=== PATIENT | female | born 1950 | race Caucasian/White ===

== ENCOUNTER 2018-04-09 12:32 | Inpatient (IN) ==
[2018-04-09] MEDS ORDERED: *HR* OxyCODONE Immed Rel 5 MG TABLET PO PRN (13:14)
[2018-04-09] MEDS ORDERED: Dextrose Gel 15 GM/37.5 ML TUBE PO PRN ×2 (13:37)
[2018-04-09] MEDS ORDERED: *HR* Dextrose 50 % in Water (Syg) 50 ML SYRINGE IVP PRN (13:37)
[2018-04-09] MEDS ORDERED: D5% in Water 1,000 ML IVC PRN (13:37)
[2018-04-09] MEDS: *HR* OxyCODONE Immed Rel 5 MG TABLET PO PRN ×2 (16:09→21:53)
[2018-04-09] MEDS: Insulin LISPRO 300 UNITS/3 ML VIAL SQ SCH ×2 (16:16→21:17)
[2018-04-09] MEDS: *HR* Metformin 500 MG TABLET PO SCH (16:17)
[2018-04-09] MEDS: *HR* Enoxaparin 30 MG/0.3 ML SYRINGE SQ SCH (17:19)
[2018-04-10] MEDS: *HR* OxyCODONE Immed Rel 5 MG TABLET PO PRN ×4 (04:01→22:39)
[2018-04-10 05:06] LABS: Basophils % 0.4 %; Eosinophils # 0.4 K/mcL (0.0-0.6); Eosinophils % 4.3 %; Hematocrit 31.7 % (35.3-44.9); Hemoglobin 10.3 g/dL (11.5-15.4); Immature Granulocytes % 0.5 % (0-4); Lymphocytes # 2.7 K/mcL (0.6-4.6); Lymphocytes % 32.8 %; Mean Corpuscular HGB Conc 32.5 g/dL (31.6-35.5); Mean Corpuscular Hemoglobin 28.6 pg (28.0-33.3); Mean Corpuscular Volume 88.1 fL (83.0-100.0); Mean Platelet Volume 9.3 fL (9.4-12.4); Monocytes # 0.7 K/mcL (0.0-1.3); Monocytes % 8.1 %; Neutrophils # 4.4 K/mcL (1.6-8.9); Platelet Count 259 K/mcL (140-400); Red Cell Distribution Width 13.7 % (11.5-14.5); Segmented Neutrophils % 53.9 %
[2018-04-10] MEDS: *HR* Enoxaparin 30 MG/0.3 ML SYRINGE SQ SCH ×2 (05:09→16:57)
[2018-04-10 05:22] LABS: BUN/Creatinine Ratio 27 (6-26); Blood Urea Nitrogen 15 mg/dL (8-23); Calcium 8.8 mg/dL (8.6-10.3); Carbon Dioxide 30 mEq/L (23-29); Chloride 99 mEq/L (98-107); Glucose 249 mg/dL (70-105); Osmolality,Calculated 289 (280-300); Potassium 3.9 mEq/L (3.5-5.1); Sodium 135 mEq/L (136-145); eGFR For Non-African Americans > 60 (> 60)
[2018-04-10] MEDS: Insulin LISPRO 300 UNITS/3 ML VIAL SQ SCH ×4 (08:13→20:29)
[2018-04-10] MEDS: Loratadine 10 MG TABLET PO SCH (08:14)
[2018-04-10] MEDS: Losartan/HCTZ 50-12.5 TABLET PO SCH (08:14)
[2018-04-10] MEDS: Aspirin Enteric Coated 81 MG Tablet PO SCH (08:14)
[2018-04-10] MEDS: *HR* Metformin 500 MG TABLET PO SCH ×3 (08:14→16:57)
[2018-04-10] MEDS: Liraglutide [Victoza 3-Pak] 1.8 MG PO SCH (08:15)
--- NOTE | 2018-04-10 17:51 | Internal Med History&Physical ---
Date of Encounter: 04/10/18 Time of Encounter: 16:50 Assessment and Plan (1) Status post total replacement of right shoulder Current visit: No Status: Acute Pt reports she fell at home sustained fracture of humerus right side says this past wednesday she had surgical repair. 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 Shelby is a 67 year old female Past Med Surg Social Fam HX - Past Medical History Medical history: diabetes, hypertension Additional medical history: allergies, IBS Psychiatric history: no psych history - Past Surgical History Additional surgical history: , emergency surgery on ruptured tubal ligation, cholecystectomy, hysterectomy - Social History Smoking Status: Never smoker Smokeless Tobacco Status: No Alcohol use: none Drug use: none - Family History Father Living Status: Cause of : Heart Disease Hx Family Cardiac Disorders: Yes Mother Living Status: Cause of : CHF Hx Family Cardiac Disorders: Yes Internal Medicine - H&P: Meds Allopurinol [Zyloprim] 300 mg PO DAILY 04/05/18 [History] Aspirin [Lo-Dose Aspirin EC] 81 mg PO DAILY 04/05/18 [History] Cetirizine HCl [Zyrtec] 10 mg PO DAILY 04/05/18 [History] Insulin Degludec [Tresiba Flextouch U-100] 48 unit SQ QAM 04/05/18 [History] Liraglutide [Victoza 3-Zenon] 1.8 mg PO DAILY 04/05/18 [History] Losartan/HCTZ [Hyzaar 50-12.5 Tablet] 1 each PO DAILY 04/05/18 [History] Metformin HCl [Metformin ER Gastric] 500 mg PO TID 04/05/18 [History] Docusate [Colace] 100 mg PO BID capsule 04/09/18 [Rx] Enoxaparin [Lovenox] 30 mg SQ Q12HCO syringe 04/09/18 [Rx] Oxycodone HCl 5 mg PO Q6H PRN 7 Days #28 tablet 04/09/18 [Rx] Allergy/AdvReac Type Severity Reaction Status Date / Time levofloxacin [From Levaquin] Allergy Hives Verified 04/04/18 21:56 All Systems PM: A 10-system review of systems was performed and is negative for pertinent findings except as documented above in the HPI. - Constitutional Vitals: Temp Pulse Resp BP Pulse Ox 98.0 F 74 16 144/78 93 04/10/18 06:52 04/10/18 06:52 04/10/18 06:52 04/10/18 06:52 04/10/18 06:52 General appearance: Present: pleasant, no acute distress, answers questions appropriately - ENT ENT exam: Present: mucous membranes moist - Neck Neck exam general surgery: Present: normal inspection, supple - Respiratory Additional comments: lungs clear bilat good effort - Cardiovascular Additional comments: regular no M - GI/Abdominal GI/Abdominal exam: Present: normal bowel sounds, no peritoneal signs Internal Med - H&P Results - Labs CBC & Chem 7: 04/10/18 04:55 04/10/18 04:55 Labs: Short CBC 04/10/18 Range/Units 04:55 WBC 8.2 (4.3-11.1) K/mcL Hgb 10.3 L (11.5-15.4) g/dL Hct 31.7 L (35.3-44.9) % Plt Count 259 (140-400) K/mcL Neutrophils # 4.4 (1.6-8.9) K/mcL BMP 04/10/18 04:55 Sodium 135 L Potassium 3.9 Chloride 99 Carbon Dioxide 30 H BUN 15 Creatinine 0.56 L Glucose 249 H Calcium 8.8
[2018-04-10] MEDS ORDERED: Ondansetron ODT 4 MG TAB.RAPDIS SL PRN (18:01)
--- NOTE | 2018-04-10 18:10 | Internal Med Progress Note ---
Date of Encounter: 04/10/18 Time of Encounter: 17:50 - Assessment and plan (1) Status post total replacement of right shoulder Current Visit: No Status: Acute (2) Diabetes Current Visit: No Status: Chronic Qualifiers: Diabetes mellitus type: type 2 Diabetes mellitus correction insulin use: without astro technician use Diabetes mellitus complication status: with hyperglycemia Qualified Code(s): E11.65 - Type 2 diabetes mellitus with hyperglycemia - Subjective Interval history: Assessment and Plan (1) Status post total replacement of right shoulder - for rehab Current visit: No Status: Acute Pt reports she fell at home sustained fracture of humerus right side says this past wednesday she had surgical repair. 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 PT OT (2) Diabetes not insulin dep continue her metformin blood sugars 150-200 slide scale short acting insulin here Current visit: No Status: Chronic pt would like to continue her vicotza will bring from home Qualifiers: Diabetes mellitus type: type 2 Diabetes mellitus astro technician insulin use: without astro technician use Diabetes mellitus complication status: with hyperglycemia Qualified Code(s): E11.65 - Type 2 diabetes mellitus with hyperglycemia 3) Anemia Hb 10 will repeat lab and iron profile b12 level ordered INTERVAL HX Ad Allergy/AdvReac Type Severity Reaction Status Date / Time levofloxacin [From Levaquin] Allergy Hives Verified 04/04/18 21:56 EXAM - Constitutional Vitals: Temp Pulse Resp BP Pulse Ox 98.0 F 74 16 144/78 93 04/10/18 06:52 04/10/18 06:52 04/10/18 06:52 04/10/18 06:52 04/10/18 06:52 General appearance: Present: pleasant, no acute distress, answers questions appropriately - ENT ENT exam: Present: mucous membranes moist - Neck Neck exam general surgery: Present: normal inspection, supple - Respiratory Additional comments: lungs clear bilat good effort - Cardiovascular Additional comments: regular no M - GI/Abdominal GI/Abdominal exam: Present: normal bowel sounds, no peritoneal signs Right Shoulder dressings in place no drng extremity pulses intact symmetric - 04/10/18 04:55 Labs: Short CBC 04/10/18 Range/Units 04:55 WBC 8.2 (4.3-11.1) K/mcL Hgb 10.3 L (11.5-15.4) g/dL Hct 31.7 L (35.3-44.9) % Plt Count 259 (140-400) K/mcL Neutrophils # 4.4 (1.6-8.9) K/mcL [facility] 04/10/18 04:55 Sodium 135 L Potassium 3.9 Chloride 99 Carbon Dioxide 30 H BUN 15 Creatinine 0.56 L Glucose 249 H Calcium 8.8 - Constitutional Vitals: Temp Pulse Resp BP Pulse Ox 98.0 F 74 16 144/78 93 04/10/18 06:52 04/10/18 06:52 04/10/18 06:52 04/10/18 06:52 04/10/18 06:52 General appearance: Present: pleasant, no acute distress, answers questions appropriately Internal Medicine: Result - Labs CBC & Chem 7: 04/10/18 04:55 04/10/18 04:55 Labs: Short CBC 04/10/18 Range/Units 04:55 WBC 8.2 (4.3-11.1) K/mcL Hgb 10.3 L (11.5-15.4) g/dL Hct 31.7 L (35.3-44.9) % Plt Count 259 (140-400) K/mcL Neutrophils # 4.4 (1.6-8.9) K/mcL [facility] 04/10/18 04:55 Sodium 135 L Potassium 3.9 Chloride 99 Carbon Dioxide 30 H BUN 15 Creatinine 0.56 L Glucose 249 H Calcium 8.8 Consult Discharge Plan - Plan Referrals: Arun Saunders MD [Primary Care Provider] -
[2018-04-11] MEDS: *HR* OxyCODONE Immed Rel 5 MG TABLET PO PRN ×4 (04:52→20:46)
[2018-04-11] MEDS: *HR* Enoxaparin 30 MG/0.3 ML SYRINGE SQ SCH ×2 (04:52→17:22)
[2018-04-11 06:21] LABS: Hematocrit 32.4 % (35.3-44.9); Hemoglobin 10.5 g/dL (11.5-15.4); Mean Corpuscular HGB Conc 32.4 g/dL (31.6-35.5); Mean Corpuscular Hemoglobin 28.6 pg (28.0-33.3); Mean Corpuscular Volume 88.3 fL (83.0-100.0); Mean Platelet Volume 9.3 fL (9.4-12.4); Platelet Count 277 K/mcL (140-400); Red Blood Count 3.67 M/mcL (3.82-4.97); Red Cell Distribution Width 13.8 % (11.5-14.5)
[2018-04-11 06:32] LABS: BUN/Creatinine Ratio 23 (6-26); Blood Urea Nitrogen 14 mg/dL (8-23); Calcium 8.8 mg/dL (8.6-10.3); Carbon Dioxide 31 mEq/L (23-29); Chloride 100 mEq/L (98-107); Glucose 282 mg/dL (70-105); Osmolality,Calculated 291 (280-300); Potassium 4.3 mEq/L (3.5-5.1); Sodium 135 mEq/L (136-145); eGFR For Non-African Americans > 60 (> 60)
[2018-04-11] MEDS: Liraglutide [Victoza 3-Pak] 1.8 MG PO SCH (08:11)
[2018-04-11] MEDS: Loratadine 10 MG TABLET PO SCH (08:17)
[2018-04-11] MEDS: Aspirin Enteric Coated 81 MG Tablet PO SCH (08:17)
[2018-04-11] MEDS: Losartan/HCTZ 50-12.5 TABLET PO SCH (08:17)
[2018-04-11] MEDS: *HR* Metformin 500 MG TABLET PO SCH ×3 (08:17→15:47)
[2018-04-11] MEDS: Insulin LISPRO 300 UNITS/3 ML VIAL SQ SCH ×4 (08:18→20:49)
[2018-04-11 13:15] LABS: % Iron Saturation 19 % (15-50); Iron 72 mcg/dL (50-170); Transferrin 267 mg/dL (203-362)
--- NOTE | 2018-04-11 14:08 | Internal Med Progress Note ---
Addendum entered and electronically signed by Misha Alston MD 04/11/18 16:06: I have personally performed a face to face evaluation on this patient. I have r eviewed and agree with the care plan. History and Exam by me shows: Patient complains of right shoulder pain even though it is better than a few days ago. She has progressed with therapy and we talked about getting her pain under control and then weaning her opioids. She has no other acute issues and is using her incentive spirometry, regularly. Discussed care with other providers and/or nursing. Patient has no complaint of chest discomfort, dyspnea, orthopnea, palpitations, nausea or vomiting, constipation or diarrhea, other changes in bowel habits, difficulty with urination, rash or itching, or other new complaints, except as mentioned above. Review of systems is otherwise negative. Examination: (Except as mentioned above): General: In no apparent distress. Alert and oriented 3. Nondiaphoretic. She is wearing a sling and swath type brace of her right upper extremity. Head: Atraumatic and normocephalic. Respiratory: No use of accessory muscles. Lungs are clear throughout. Normal airflow. Cardiovascular: Regular rate and rhythm without murmur appreciated. Abdomen: Bowel sounds are normal. No hepatosplenomegaly mass or tenderness appreciated. Obese and therefore difficult to palpate deeply. Extremities: No cyanosis clubbing or edema. Skin: Warm and non-diaphoretic with no new lesions noted. Original Note: Date of Encounter: 04/11/18 Time of Encounter: 14:06 - Assessment and plan (1) Status post total replacement of right shoulder Current Visit: Yes Status: Acute Assessment and plan: No acute issues. Right shoulder continues to show small amount of edema, but surgical incision appears healthy. We will continue with use of sling. Patient states that she continues to have moderate pain to the right shoulder which increases with movement. We will increase patient's frequency of pain medication. Patient progressing well with physical therapy. We will continue with current plan of care (2) Diabetes Current Visit: Yes Status: Chronic Assessment and plan: Patient's glucoses have remained slightly elevated at 175-225 on most fingersticks. We will continue with sliding scale coverage until discharge. Patient takes due to nonformulary diabetic medications at home, which will be restarted at time of discharge. Qualifiers: Diabetes mellitus type: type 2 Diabetes mellitus detention insulin use: without exterminator use Diabetes mellitus complication status: with hyperglycemia Qualified Code(s): E11.65 - Type 2 diabetes mellitus with hyperglycemia (3) HTN (hypertension) Current Visit: Yes Status: Chronic Assessment and plan: Vital signs are stable. We will continue with current medications. Qualifiers: Hypertension type: essential hypertension Qualified Code(s): I10 - E ssential (primary) hypertension - Time Spent With Patient less than 15 minutes - Subjective Interval history: Patient appears relaxed and currently states that she has minimal to moderate pain to her right shoulder which increases with range of motion. Right shoulder surgical incision appears dry and intact and patient continues to wear a sling to the right arm. Noted minimal edema to right shoulder with complaints of slight tenderness during palpation. Patient states that her pain medications have not been effective when she takes them but after her discharge from the hospital they had extended her frequency. - Constitutional Vitals: Temp Pulse Resp BP Pulse Ox 98.4 F 85 16 123/75 93 04/11/18 06:44 04/11/18 06:44 04/11/18 06:44 04/11/18 06:44 04/11/18 06:44 General appearance: Present: A&O X 3, pleasant, no acute distress, answers questions appropriately - Head Head exam: Present: atraumatic, normocephalic - Eye Eye exam: Present: PERRL, conjuntiva pink, sclera anicteric Pupils: Present: PERRL - Neck Neck exam general surgery: Present: supple, trachea midline. Absent: lympha denopathy - Respiratory Respiratory exam: Present: CTAB. Absent: accessory muscle use, rales, rhonchi, wheezes - Cardiovascular Cardiovascular exam: Present: RRR, +S1, +S2. Absent: diastolic murmur, gallop, rubs, systolic murmur - GI/Abdominal GI/Abdominal exam: Present: normal bowel sounds, soft, no peritoneal signs. Absent: distended, tenderness - Extremities Exam Extremities exam: Present: warm, radial pulses palpable and symmetrical. Absent: calf tenderness, cyanotic, pedal edema Additional comments: Right shoulder with slight amount of edema noted. No erythema noted. Surgical incision appears dry and intact. Right arm remains in sling with distal CV checks within normal limits - Neurological Exam Neurological exam: Present: CN II-XII intact, oriented X3, no focal deficits. Absent: pronater drift, facial droop, speech deficit - Skin Skin exam: Present: dry, intact Internal Medicine: Result - Labs CBC & Chem 7: 04/11/18 06:00 04/11/18 06:00 Labs: Short CBC 04/11/18 Range/Units 06:00 WBC 9.3 (4.3-11.1) K/mcL Hgb 10.5 L (11.5-15.4) g/dL Hct 32.4 L (35.3-44.9) % Plt Count 277 (140-400) K/mcL BMP 04/11/18 06:00 Sodium 135 L Potassium 4.3 Chloride 100 Carbon Dioxide 31 H BUN 14 Creatinine 0.62 Glucose 282 H Calcium 8.8 Consult Discharge Plan - Plan Referrals: Arun Saunders MD [Primary Care Provider] -
[2018-04-12] MEDS: *HR* OxyCODONE Immed Rel 5 MG TABLET PO PRN ×4 (01:54→21:13)
[2018-04-12] MEDS: *HR* Enoxaparin 30 MG/0.3 ML SYRINGE SQ SCH ×2 (05:45→17:11)
[2018-04-12] MEDS: Liraglutide [Victoza 3-Pak] 1.8 MG PO SCH (08:45)
[2018-04-12] MEDS: *HR* Metformin 500 MG TABLET PO SCH ×3 (08:47→17:08)
[2018-04-12] MEDS: Aspirin Enteric Coated 81 MG Tablet PO SCH (08:47)
[2018-04-12] MEDS: Loratadine 10 MG TABLET PO SCH (08:48)
[2018-04-12] MEDS: Losartan/HCTZ 50-12.5 TABLET PO SCH (08:48)
[2018-04-12] MEDS: Insulin LISPRO 300 UNITS/3 ML VIAL SQ SCH ×4 (08:52→21:14)
--- NOTE | 2018-04-12 10:56 | Internal Med Progress Note ---
Addendum entered and electronically signed by Misha Alston MD 04/12/18 11:57: I have personally performed a face to face evaluation on this patient. I have r eviewed and agree with the care plan. History and Exam by me shows: Patient is not having as much shoulder pain since her sling was readjusted, this morning. She states that pain is still significant and nursing states that she has been asking for pain medication, frequently from. Bowel movement took 2 hours last night and was very painful but finally moved. She asks for something more for laxative and this has been scheduled (MiraLAX). Discussed care with other providers and/or nursing. Patient has no complaint of chest discomfort, dyspnea, orthopnea, palpitations, nausea or vomiting, constipation or diarrhea, other changes in bowel habits, difficulty with urination, rash or itching, or other new complaints, except as mentioned above. Review of systems is otherwise negative. Examination: (Except as mentioned above): General: In no apparent distress. Alert and oriented 3. Nondiaphoretic. She is stil in a shoulder sling. Head: Atraumatic and normocephalic. Respiratory: No use of accessory muscles. Lungs are clear throughout. Normal airflow. Cardiovascular: Regular rate and rhythm without murmur appreciated. Abdomen: Bowel sounds are normal. No hepatosplenomegaly mass or tenderness appreciated. Obese and therefore difficult to palpate deeply. Extremities: No cyanosis clubbing or edema. Right grasp is normal. Skin: Warm and non-diaphoretic with no new lesions noted. Original Note: Date of Encounter: 04/12/18 Time of Encounter: 10:53 - Assessment and plan (1) Status post total replacement of right shoulder Current Visit: Yes Status: Acute Assessment and plan: Pain controlled with oxycodone. Continue right shoulder sling. Continue PT and OT. Will follow progress. Follow up with ortho as scheduled. (2) Diabetes Current Visit: Yes Status: Chronic Assessment and plan: Controlled. Continue insulin per sliding scale. Monitor fingerstick blood sugar. Qualifiers: Diabetes mellitus type: type 2 Diabetes mellitus fci insulin use: without fci use Diabetes mellitus complication status: with hyperglycemia Qualified Code(s): E11.65 - Type 2 diabetes mellitus with hyperglycemia (3) HTN (hypertension) Current Visit: Yes Status: Chronic Assessment and plan: Controlled with current medication. Monitor blood pressure. Qualifiers: Hypertension type: essential hypertension Qualified Code(s): I10 - Essential (primary) hypertension (4) Constipation Current Visit: Yes Status: Acute Assessment and plan: continue miralax. encourage PO fluids. monitor. Qualifiers: Constipation type: unspecified constipation type Qualified Code(s): K59.00 - Constipation, unspecified - Time Spent With Patient less than 15 minutes - Subjective Interval history: s/p right shoulder replacement. states pain is controlled. with oxycodone. participating well with therapy. states she had a BM last night but was constipated. requesting miralax. denies fever, chills, NVD, SOB or chest pain. - Constitutional Vitals: Temp Pulse Resp BP Pulse Ox 97.8 F 84 15 112/56 96 04/12/18 07:58 04/12/18 07:58 04/12/18 07:58 04/12/18 07:58 04/12/18 07:58 General appearance: Present: cooperative, A&O X 3, pleasant, no acute distress, answers questions appropriately - Head Head exam: Present: atraumatic, normocephalic - Eye Eye exam: Present: PERRL, conjuntiva pink, sclera anicteric Pupils: Present: PERRL - Neck Neck exam general surgery: Present: supple, trachea midline. Absent: lymphadenopathy - Respiratory Respiratory exam: Present: CTAB. Absent: accessory muscle use, rales, rhonchi, wheezes - Cardiovascular Cardiovascular exam: Present: RRR, +S1, +S2. Absent: diastolic murmur, gallop, rubs, systolic murmur - GI/Abdominal GI/Abdominal exam: Present: normal bowel sounds, soft, no peritoneal signs. Absent: distended, tenderness - Extremities Exam Extremities exam: Present: warm, radial pulses palpable and symmetrical. Absent: calf tenderness, cyanotic, pedal edema - Incison Comments: right shoulder incision drsg dry and intact. slight surrounding edema. right arm in sling. - Neurological Exam Neurological exam: Present: CN II-XII intact, oriented X3, no focal deficits. Absent: pronater drift, facial droop, speech deficit - Skin Skin exam: Present: dry, intact Internal Medicine: Result - Labs CBC & Chem 7: 04/11/18 06:00 04/11/18 06:00 Consult Discharge Plan - Plan Referrals: Leon Luna MD [Partnered Physician] - (patient had appt on 04/13 @ 0700 that was cancelled, will need to reschedule once we know when she is discharging) Arun Saunders MD [Primary Care Provider] -
[2018-04-13] MEDS: *HR* OxyCODONE Immed Rel 5 MG TABLET PO PRN ×3 (04:30→17:20)
[2018-04-13] MEDS: *HR* Enoxaparin 30 MG/0.3 ML SYRINGE SQ SCH ×2 (06:08→17:21)
[2018-04-13] MEDS: Aspirin Enteric Coated 81 MG Tablet PO SCH (08:27)
[2018-04-13] MEDS: Loratadine 10 MG TABLET PO SCH (08:28)
[2018-04-13] MEDS: Losartan/HCTZ 50-12.5 TABLET PO SCH (08:28)
[2018-04-13] MEDS: Liraglutide [Victoza 3-Pak] 1.8 MG PO SCH (08:30)
[2018-04-13] MEDS: Insulin LISPRO 300 UNITS/3 ML VIAL SQ SCH ×4 (08:30→20:33)
[2018-04-13] MEDS: *HR* Metformin 500 MG TABLET PO SCH ×3 (08:39→17:21)
--- NOTE | 2018-04-13 13:58 | Internal Med Progress Note ---
Addendum entered and electronically signed by Misha Alston MD 04/14/18 12:31: I have personally performed a face to face evaluation on this patient. I have r eviewed and agree with the care plan. History and Exam by me shows: The patient was evaluated by me yesterday but the note was not complete. This documentation is being completed today for that reason. Patient is concerned about her bowels and laxatives have been ordered. We will use MiraLAX twice daily scheduled, for day or so. Pain control is improved. Discussed care with other providers and/or nursing. Patient has no complaint of chest discomfort, dyspnea, orthopnea, palpitations, nausea or vomiting, constipation or diarrhea, other changes in bowel habits, difficulty with urination, rash or itching, or other new complaints, except as mentioned above. Review of systems is otherwise negative. Examination: (Except as mentioned above): General: In no apparent distress. Alert and oriented 3. Nondiaphoretic. Head: Atraumatic and normocephalic. Respiratory: No use of accessory muscles. Lungs are clear throughout. Normal airflow. Cardiovascular: Regular rate and rhythm without murmur appreciated. Abdomen: Bowel sounds are normal. No hepatosplenomegaly mass or tenderness appreciated. Obese and therefore difficult to palpate deeply. Extremities: No cyanosis clubbing or edema. Skin: Warm and non-diaphoretic with no new lesions noted. Original Note: Date of Encounter: 04/13/18 Time of Encounter: 13:56 - Assessment and plan (1) Status post total replacement of right shoulder Current Visit: Yes Status: Acute Assessment and plan: Pain controlled with oxycodone. Continue right shoulder sling. Continue PT and OT. Will follow progress. Follow up with ortho as scheduled. (2) Diabetes Current Visit: Yes Status: Chronic Assessment and plan: Controlled. Continue insulin per sliding scale. Monitor fingerstick blood sugar. Qualifiers: Diabetes mellitus type: type 2 Diabetes mellitus care home insulin use: without dedicated intermodal truck driver use Diabetes mellitus complication status: with hyperglycemia Qualified Code(s): E11.65 - Type 2 diabetes mellitus with hyperglycemia (3) HTN (hypertension) Current Visit: Yes Status: Chronic Assessment and plan: Controlled with current medication. Monitor blood pressure. Qualifiers: Hypertension type: essential hypertension Qualified Code(s): I10 - Essential (primary) hypertension (4) Constipation Current Visit: Yes Status: Acute Assessment and plan: Improved. Large bowel movements with enema this morning. Continue Miralax and colace. encourage PO fluids. monitor. Qualifiers: Constipation type: unspecified constipation type Qualified Code(s): K59.00 - Constipation, unspecified - Time Spent With Patient less than 15 minutes - Subjective Interval history: s/p right shoulder replacement. states pain is controlled. with oxycodone. participating well with therapy. states she had a large BM this am after enema. denies fever, chills, NVD, SOB or chest pain. Maintaining appetite and hydration. - Constitutional Vitals: Temp Pulse Resp BP Pulse Ox 98.3 F 79 16 130/57 92 04/13/18 06:58 04/13/18 06:58 04/13/18 06:58 04/13/18 06:58 04/13/18 06:58 General appearance: Present: cooperative, A&O X 3, pleasant, no acute distress, answers questions appropriately - Head Head exam: Present: atraumatic, normocephalic - Eye Eye exam: Present: PERRL, conjuntiva pink, sclera anicteric Pupils: Present: PERRL - Neck Neck exam general surgery: Present: supple, trachea midline. Absent: lymphadenopathy - Respiratory Respiratory exam: Present: CTAB. Absent: accessory muscle use, rales, rhonchi, wheezes - Cardiovascular Cardiovascular exam: Present: RRR, +S1, +S2. Absent: diastolic murmur, gallop, rubs, systolic murmur - GI/Abdominal GI/Abdominal exam: Present: normal bowel sounds, soft, no peritoneal signs. Absent: distended, tenderness - Extremities Exam Extremities exam: Present: warm, radial pulses palpable and symmetrical. Absent: calf tenderness, cyanotic, pedal edema Additional comments: Right shoulder incision dressing dry and intact. No drainage. Right arm in sling. Capillary refill brisk. - Neurological Exam Neurological exam: Present: CN II-XII intact, oriented X3, no focal deficits. Absent: pronater drift, facial droop, speech deficit - Skin Skin exam: Present: dry, intact Internal Medicine: Result - Labs CBC & Chem 7: 04/11/18 06:00 04/11/18 06:00 Consult Discharge Plan - Plan Referrals: Leon Luna MD [Partnered Physician] - (patient had appt on 04/13 @ 0700 that was cancelled, will need to reschedule once we know when she is discha rging) Arun Saunders MD [Primary Care Provider] -
[2018-04-14] MEDS: *HR* OxyCODONE Immed Rel 5 MG TABLET PO PRN ×5 (00:33→22:24)
[2018-04-14] MEDS: *HR* Enoxaparin 30 MG/0.3 ML SYRINGE SQ SCH ×2 (06:20→17:30)
[2018-04-14] MEDS: Liraglutide [Victoza 3-Pak] 1.8 MG PO SCH (08:23)
[2018-04-14] MEDS: Insulin LISPRO 300 UNITS/3 ML VIAL SQ SCH ×4 (08:33→22:27)
[2018-04-14] MEDS: Loratadine 10 MG TABLET PO SCH (08:34)
[2018-04-14] MEDS: *HR* Metformin 500 MG TABLET PO SCH ×3 (08:34→17:30)
[2018-04-14] MEDS: Losartan/HCTZ 50-12.5 TABLET PO SCH (08:34)
[2018-04-14] MEDS: Aspirin Enteric Coated 81 MG Tablet PO SCH (08:35)
--- NOTE | 2018-04-14 11:57 | Internal Med Progress Note ---
Addendum entered and electronically signed by Misha Alston MD 04/14/18 12:26: I have personally performed a face to face evaluation on this patient. I have r eviewed and agree with the care plan. History and Exam by me shows: Patient is pleased that her bowels moved including today. She is without other complaint except that her left knee causes her pain while walking and occasionally felt like she was going to buckle while walking. She is using cane for stability but the sharp pain at the medial aspect of the knee has been disconcerting to her. Discussed care with other providers and/or nursing. Patient has no complaint of chest discomfort, dyspnea, orthopnea, palpitations, nausea or vomiting, constipation or diarrhea, other changes in bowel habits, difficulty with urination, rash or itching, or other new complaints, except as mentioned above. Review of systems is otherwise negative. Examination: (Except as mentioned above): General: In no apparent distress. Alert and oriented 3. Nondiaphoretic. Head: Atraumatic and normocephalic. Respiratory: No use of accessory muscles. Lungs are clear throughout. Normal airflow. Cardiovascular: Regular rate and rhythm without murmur appreciated. Abdomen: Bowel sounds are normal. No hepatosplenomegaly mass or tenderness appreciated. Obese and therefore difficult to palpate deeply. Patient is examined upright at bedside and this also limits exam. Extremities: No cyanosis clubbing or edema. Patient with good range of motion and no effusion or warmth or tenderness at left knee. However, there is mild crepitus. Skin: Warm and non-diaphoretic with no new lesions noted. We will obtain a left knee x-ray and follow. Advised patient to avoid excessive ambulation and to follow with therapy in terms of recommendations. Original Note: Date of Encounter: 04/14/18 Time of Encounter: 11:55 - Assessment and plan (1) Status post total replacement of right shoulder Current Visit: Yes Status: Acute Assessment and plan: No acute issues. Right shoulder surgical incision appears healthy. We will continue with use of sling. Patient states that she continues to have moderate pain to the right shoulder which increases with movement, but that the pain has gradually decreased over the past several days. Patient progressing well with physical therapy. We will continue with current plan of care (2) Diabetes Current Visit: Yes Status: Chronic Assessment and plan: Patient's glucoses have remained slightly elevated at 175-225 on most fingersticks. We will continue with sliding scale coverage until discharge. Qualifiers: Diabetes mellitus type: type 2 Diabetes mellitus manager intermediate insulin use: without manager intermediate use Diabetes mellitus complication status: with hyperglycemia Qualified Code(s): E11.65 - Type 2 diabetes mellitus with hyperglycemia (3) HTN (hypertension) Current Visit: Yes Status: Chronic Assessment and plan: Vital signs are stable. We will continue with current medications. Qualifiers: Hypertension type: essential hypertension Qualified Code(s): I10 - Essential (primary) hypertension - Time Spent With Patient less than 15 minutes - Subjective Interval history: Patient appears relaxed and currently states that she has minimal to moderate pain to her right shoulder which increases with range of motion. Right shoulder surgical incision appears dry and intact and patient continues to wear a sling to the right arm. Patient states that her pain medications have been effective. - Constitutional Vitals: Temp Pulse Resp BP Pulse Ox 98.3 F 85 18 140/66 94 04/14/18 06:51 04/14/18 06:51 04/14/18 06:51 04/14/18 06:51 04/14/18 06:51 General appearance: Present: cooperative, A&O X 3, pleasant, no acute distress, answers questions appropriately - Head Head exam: Present: atraumatic, normocephalic - Eye Eye exam: Present: PERRL, conjuntiva pink, sclera anicteric Pupils: Present: PERRL - Neck Neck exam general surgery: Present: supple, trachea midline. Absent: lymphadenopathy - Respiratory Respiratory exam: Present: CTAB. Absent: accessory muscle use, rales, rhonchi, wheezes - Cardiovascular Cardiovascular exam: Present: RRR, +S1, +S2. Absent: diastolic murmur, gallop, rubs, systolic murmur - GI/Abdominal GI/Abdominal exam: Present: normal bowel sounds, soft, no peritoneal signs. Absent: distended, tenderness - Extremities Exam Extremities exam: Present: warm, radial pulses palpable and symmetrical. Absent: calf tenderness, cyanotic, pedal edema Additional comments: Right shoulder surgical incision appears dry and intact. Right arm remains in sling with distal CV checks within normal limits. - Neurological Exam Neurological exam: Present: CN II-XII intact, oriented X3, no focal deficits. Absent: pronater drift, facial droop, speech deficit - Skin Skin exam: Present: dry, intact Internal Medicine: Result - Labs CBC & Chem 7: 04/11/18 06:00 04/11/18 06:00 Consult Discharge Plan - Plan Referrals: Leon Luna MD [Partnered Physician] - (patient had appt on 04/13 @ 0700 that was cancelled, will need to reschedule once we know when she is discharging) Arun Saunders MD [Primary Care Provider] -
[2018-04-15] MEDS: *HR* OxyCODONE Immed Rel 5 MG TABLET PO PRN ×3 (02:34→11:49)
[2018-04-15] MEDS: *HR* Enoxaparin 30 MG/0.3 ML SYRINGE SQ SCH (06:52)
[2018-04-15 07:05] VITALS: BP 151/74
[2018-04-15] MEDS: Liraglutide [Victoza 3-Pak] 1.8 MG PO SCH (07:52)
[2018-04-15] MEDS: Insulin LISPRO 300 UNITS/3 ML VIAL SQ SCH ×2 (08:04→11:49)
[2018-04-15] MEDS: *HR* Metformin 500 MG TABLET PO SCH ×2 (08:04→11:48)
[2018-04-15] MEDS: Aspirin Enteric Coated 81 MG Tablet PO SCH (08:04)
[2018-04-15] MEDS: Losartan/HCTZ 50-12.5 TABLET PO SCH (08:04)
[2018-04-15] MEDS: Loratadine 10 MG TABLET PO SCH (08:04)
--- NOTE | 2018-04-15 10:59 | Discharge Summary ---
Addendum entered and electronically signed by Misha Alston MD 04/15/18 11:45: I have personally performed a face to face evaluation on this patient. I have r eviewed and agree with the care plan. History and Exam by me shows: Patient is doing well with improvement, "everyday." She still has knee pain and I let her know that I thought her knee was unremarkable. I instructed her to follow with her primary physician if this continues to bother her. She is pleased to have been moving her bowels and we talked about the use of MiraLAX for bowel movements, at least every other day. She denies other problems. Discussed care with other providers and/or nursing. Patient has no complaint of chest discomfort, dyspnea, orthopnea, palpitations, nausea or vomiting, constipation or diarrhea, other changes in bowel habits, difficulty with urination, rash or itching, or other new complaints, except as mentioned above. Review of systems is otherwise negative. Examination: (Except as mentioned above): General: In no apparent distress. Alert and oriented 3. Nondiaphoretic. Head: Atraumatic and normocephalic. Respiratory: No use of accessory muscles. Lungs are clear throughout. Normal airflow. Cardiovascular: Regular rate and rhythm without murmur appreciated. Abdomen: Bowel sounds are normal. No hepatosplenomegaly mass or tenderness a ppreciated. Obese and therefore difficult to palpate deeply. Extremities: No cyanosis clubbing or edema. Good neurovascular function, distally in right arm. Skin: Warm and non-diaphoretic with no new lesions noted. Original Note: Date of Encounter: 04/15/18 Time of Encounter: 11:22 - Discharge Diagnosis (1) Status post total replacement of right shoulder Priority: Primary Status: Acute Comments: Patient was admitted to this facility for physical therapy following a right total shoulder replacement. Patient's right shoulder surgical incision remains dry and intact and appears healthy. Pain has been well managed with current medications, although patient states she continues to have minimal amount of persistent pain. Right arm remains in sling with distal CV checks within normal limits. Patient is continue follow-up with orthopedic surgeon and continue physical therapy through home health services. (2) Diabetes Priority: Secondary Status: Chronic Comments: Patients glucose has been slightly elevated, but covered with sliding scale coverage. Patient is continue with home medications and follow-up with PCP in one week for further evaluation and management Qualifiers: Diabetes mellitus type: type 2 Diabetes mellitus ferry terminal agent insulin use: without ferry terminal agent use Diabetes mellitus complication status: with hyperglycemia Qualified Code(s): E11.65 - Type 2 diabetes mellitus with hyperglycemia (3) HTN (hypertension) Priority: Secondary Status: Chronic Comments: No acute issues during her stay at this facility. Patient is continue home medications and follow with PCP Qualifiers: Hypertension type: essential hypertension Qualified Code(s): I10 - Essential (primary) hypertension Hospital course: Ms. Shelby is a 67 year old female , who was admitted to this facility for phys ical therapy following a right shoulder replacement. Patient had experienced a fall and was surgically treated at an [facility]. Patient's recovery has been fairly uneventful. Patient has participated in physical therapy at this facility and progressed well. Right shoulder surgical incision appears healthy with dressing intact. Patient continues to use sling for right arm. Distal CV checks remained normal. Patient's glucose has been slightly elevated during her stay at this facility but has been covered with sliding scale insulin. Patient is to restart her home medications for her diabetes after discharge. Patient is continue her physical therapy through home health services. Patient will continue scheduled follow-up with orthopedic surgeon and schedule a follow-up visit with her PCP for further evaluation. - Time Spent with Patient Total time spent providing and/or coordinating discharge services: - Discharge Medications Home Medications: Allopurinol [Zyloprim] 300 mg PO DAILY 04/05/18 [History] Aspirin [Lo-Dose Aspirin EC] 81 mg PO DAILY 04/05/18 [History] Cetirizine HCl [Zyrtec] 10 mg PO DAILY 04/05/18 [History] Insulin Degludec [Tresiba Flextouch U-100] 48 unit SQ QAM 04/05/18 [History] Liraglutide [Victoza 3-Zenon] 1.8 mg PO DAILY 04/05/18 [History] Losartan/HCTZ [Hyzaar 50-12.5 Tablet] 1 each PO DAILY 04/05/18 [History] Metformin HCl [Metformin ER Gastric] 500 mg PO TID 04/05/18 [History] Docusate [Colace] 100 mg PO BID capsule 04/09/18 [Rx] Enoxaparin [Lovenox] 30 mg SQ Q12HCO syringe 04/09/18 [Rx] Oxycodone HCl 5 mg PO Q6H PRN 7 Days #28 tablet 04/09/18 [Rx] Allergies/Adverse Reactions: Allergy/AdvReac Type Severity Reaction Status Date / Time levofloxacin [From Levaquin] Allergy Hives Verified 04/04/18 21:56 Date of admission: 04/09/18 12:32 Primary care physician: Arun Saunders MD Consults: 04/09/18 13:20 Consult to Occupational Therapy [CONS] Routine Comment: Evaluate, develop and implement POC Reason for Consult: eval for right shoulder repair Does patient have active BEDREST order?: No Is patient medically & hemodynamically stable?: Yes Patient assessed for mobility or mobilized this visit?: No Consult to Physical Therapy [CONS] Routine Comment: Evaluate, develop and implement POC Reason for Consult: eval after right shoulder repair Does patient have active BEDREST order?: No Is patient medically & hemodynamically stable?: Yes Patient assessed for mobility or mobilized this visit?: No Consult to Recreational Therapy [CONS] Routine Comment: Evaluate, develop and implement POC Consult to Credit Analysis Manager [CONS] Routine Reason for SW Consult: eval from right shoulder repair Discharging clinician: Misha Alston - Constitutional Vitals: Temp Pulse Resp BP Pulse Ox 98.2 F 79 16 151/74 98 04/15/18 07:04 04/15/18 07:04 04/15/18 07:04 04/15/18 07:04 04/15/18 07:04 General appearance: Present: cooperative, A&O X 3, pleasant, no acute distress, answers questions appropriately - Head Head exam: Present: atraumatic, normocephalic - Eye Eye exam: Present: PERRL, conjuntiva pink, sclera anicteric Pupils: Present: PERRL - Neck Neck exam general surgery: Present: supple, trachea midline. Absent: lymphadenopathy - Respiratory Respiratory exam: Present: CTAB. Absent: accessory muscle use, rales, rhonchi, wheezes - Cardiovascular Cardiovascular exam: Present: RRR, +S1, +S2. Absent: diastolic murmur, gallop, rubs, systolic murmur - GI/Abdominal GI/Abdominal exam: Present: normal bowel sounds, soft, no peritoneal signs. Absent: distended, tenderness - Extremities Exam Extremities exam: Present: warm, radial pulses palpable and symmetrical. Absent: calf tenderness, cyanotic, pedal edema Additional comments: Right shoulder surgical incision remains covered with clear dressing which remains intact. Wound appears healthy - Neurological Exam Neurological exam: Present: CN II-XII intact, oriented X3, no focal deficits. Absent: pronater drift, facial droop, speech deficit - Skin Skin exam: Present: dry, intact - Patient Status Disposition: Home Health Service Condition: Good Functional capacity at discharge: independent ambulation Overall status at discharge: patient is progressing back to baseline - Discharge Instructions Follow Up With: Leon Luna MD [Partnered Physician] - (patient had appt on 04/13 @ 0700 that was cancelled, will need to reschedule once we know when she is discharging) Arun Saunders MD [Primary Care Provider] - - Diet and Activity Activity: as per physical therapy, increase activity as tolerated Diet: diabetic diet
--- NOTE | 2018-04-15 11:33 | Physician Discharge Referral ---
Addendum entered and electronically signed by Misha Alston MD 04/15/18 11:45: Original Note: Home Health/Hosp Referral Info Transfer to: Home Health Provider in Charge Post Discharge: PCP - Diagnosis (1) Status post total replacement of right shoulder Priority: Primary Status: Acute (2) Diabetes Priority: Secondary Status: Chronic (3) HTN (hypertension) Priority: Secondary Status: Chronic - Respiratory Orders Smoking Cessation: Smoking cessation has been advised. For more information, call the [place] Tobacco Quit Line at 0-356-BMKB-NOW. - Diet/Nutrition Diet/Nutrition Orders: No Concentrated Sweets - Activity Activity Orders: Up ad yariel - Services Needed Following services are medically necessary services: Nursing, Home Health Aide, Physical Therapy, Occupational Therapy - Transfer Medications Home Medications: Allopurinol [Zyloprim] 300 mg PO DAILY 04/05/18 [History] Aspirin [Lo-Dose Aspirin EC] 81 mg PO DAILY 04/05/18 [History] Cetirizine HCl [Zyrtec] 10 mg PO DAILY 04/05/18 [History] Insulin Degludec [Tresiba Flextouch U-100] 48 unit SQ QAM 04/05/18 [History] Liraglutide [Victoza 3-Zenon] 1.8 mg PO DAILY 04/05/18 [History] Losartan/HCTZ [Hyzaar 50-12.5 Tablet] 1 each PO DAILY 04/05/18 [History] Metformin HCl [Metformin ER Gastric] 500 mg PO TID 04/05/18 [History] Docusate [Colace] 100 mg PO BID capsule 04/09/18 [Rx] Enoxaparin [Lovenox] 30 mg SQ Q12HCO syringe 04/09/18 [Rx] Oxycodone HCl 5 mg PO Q6H PRN 7 Days #28 tablet 04/09/18 [Rx] Allergies/Adverse Reactions: Allergy/AdvReac Type Severity Reaction Status Date / Time levofloxacin [From Levaquin] Allergy Hives Verified 04/04/18 21:56 Certification: Further, I certify that my clinical findings support that this patient is homebound (i.e. absences from home require considerable and taxing effort and are for medical reasons or sabianist services or infrequently or short duration when for other reasons) because: Homebound Reason: Leaving home requires considerable and taxing effort due to condition Attestation: My signature below is to certify that this patient is under my care and that I, or nurse practitioner, or a physician's hotel assistant general manager working with me, has a [id number] encounter with this patient.
== END 2018-04-15 13:10 | disposition home health service (06) | DRG 561 ==
LOC: INPGRE 12:32